=== PATIENT | female | born 1990 ===

== ENCOUNTER 2017-04-15 21:08 | Inpatient (IN) | payer MEDICAID ==
[2017-04-15 21:18] VITALS: O2SAT 96
--- NOTE | 2017-04-15 22:30 | ED PDOC ---
HPI: Psych/Substance Abuse Time Seen by Provider: 04/15/17 21:25 Chief Complaint (Nursing): Psychiatric Evaluation Chief Complaint (Provider): Psychiatric Evaluation History Per: Patient History/Exam Limitations: no limitations Current Symptoms Are (Timing): Still Present Additional Complaint(s): 27 y/o female presents to the emergency department with a complaint of experiencing depression x1 year. Reports making multiple poor decisions in the past in terms of her relationship with men and making healthy decisions. Patient says she is unable to get out of bed, has thoughts of dangerous behaviors with herself, and trying suicidal attempts. States she never needed nor sought medical evaluation for depression. Denies further medical complaints. Past Medical History Reviewed: Historical Data, Nursing Documentation, Vital Signs Vital Signs: Last Vital Signs Temp 98.2 F 04/15/17 21:13 Pulse 80 04/15/17 21:13 Resp 18 04/15/17 21:13 BP 130/82 04/15/17 21:13 Pulse Ox 96 04/15/17 21:13 - Medical History PMH: Depression - Surgical History Surgical History: No Surg Hx - Family History Family History: States: Unknown Family Hx - Social History Current smoker - smoking cessation education provided: No Alcohol: Social Drugs: Cannabis - Home Medications Home Medications: Ambulatory Orders Medication Instructions Recorded No Known Home Med 04/15/17 - Allergies Allergies/Adverse Reactions: Allergies Allergy/AdvReac Type Severity Reaction Status Date / Time No Known Allergies Allergy Verified 04/15/17 21:12 Review of Systems ROS Statement: Except As Marked, All Systems Reviewed And Found Negative Psych: Positive for: Depression, Suicidal ideation Physical Exam - Reviewed Nursing Documentation Reviewed: Yes Vital Signs Reviewed: Yes - Physical Exam Appears: Positive for: Non-toxic, No Acute Distress Head Exam: Positive for: ATRAUMATIC, NORMAL INSPECTION, NORMOCEPHALIC Skin: Positive for: Normal Color, Warm, Dry Eye Exam: Positive for: Normal appearance, EOMI, PERRL ENT: Positive for: Normal ENT Inspection. Negative for: Pharyngeal Erythema Neck: Positive for: Normal, Supple Cardiovascular/Chest: Positive for: Regular Rate, Rhythm. Negative for: Murmur Respiratory: Positive for: Normal Breath Sounds. Negative for: Accessory Muscle Use, Respiratory Distress Gastrointestinal/Abdominal: Positive for: Normal Exam, Soft. Negative for: Tenderness Back: Positive for: Normal Inspection. Negative for: L CVA Tenderness, R CVA Tenderness Extremity: Positive for: Normal ROM. Negative for: Pedal Edema Neurologic/Psych: Positive for: Alert, Oriented - Laboratory Results Result Diagrams: 04/15/17 23:20 04/15/17 23:20 - ECG O2 Sat by Pulse Oximetry: 96 (RA) Pulse Ox Interpretation: Normal Medical Decision Making Medical Decision Making: Time: 21:26 Initial impression: 27 y/o female with suicidal ideation and depression Initial plan: --Alcohol Serum --CMP --Drug Screen, urine --Crisis evaluation as ordered --Urine DIP --Urine Preg --CBC w/ diff --Urinalysis --1:1 Obs for suicide Scribe Attestation: Documented by Robyn Ricardo, acting as a scribe for Gama Gutierrez MD. Provider Scribe Attestation: All medical record entries made by the Scribe were at my direction and personally dictated by me. I have reviewed the chart and agree that the record accurately reflects my personal performance of the history, physical exam, medical decision making, and the department course for this patient. I have also personally directed, reviewed, and agree with the discharge instructions and disposition. ED OBSERVATION Date of observation admission: 04/15/17 Time of observation admission: 21:26 - Observation admission statement Patient is being placed in observation because:: suicidal ideation and depression. - Goals of Observation Goals of observation are:: crisis evaluation, reassessment, and disposition. - Progress Note Progress Note: 04/15/17 23:41 --Patient was evaluated by Crisis. Will be admitted for further medical treatment and stabilization Patient is medically stable for psychiatric admission. 04/16/17 02:22 Disposition - Clinical Impression Clinical Impression: Major depression - Patient ED Disposition Is Patient to be Admitted: Yes Doctor Will See Patient In The: Hospital Counseled Patient/Family Regarding: Diagnosis - Disposition Disposition Time: 22:26 Condition: STABLE
[2017-04-15 23:24] LABS: BASO % 0.4 % (0.0-2.0); EOS # 0.2 K/uL (0.0-0.7); HEMATOCRIT 35.7 % (34.0-47.0); LYMPH # 1.9 K/uL (1.0-4.3); MEAN CORPUSCULAR HEMOGLOBIN 31.2 pg (27.0-31.0); MEAN CORPUSCULAR HGB CONC 33.2 g/dL (33.0-37.0); MEAN PLATELET VOLUME 9.8 fl (7.2-11.7); MONO # 0.9 K/uL (0.0-0.8); MONO % 9.9 % (0.0-10.0); NEUT # 5.9 K/uL (1.8-7.0); NEUT % 66.7 % (50.0-75.0); RED CELL DISTRIBUTION WIDTH 12.6 % (11.5-14.5); WHITE BLOOD COUNT 8.8 K/uL (4.8-10.8)
[2017-04-15 23:29] LABS: RBC URINE 1 /hpf (0-3); URINE BILIRUBIN NEGATIVE (NEGATIVE); URINE BLOOD MODERATE (NEGATIVE); URINE COLOR STRAW (YELLOW); URINE GLUCOSE (UA) NEG (Normal); URINE KETONE NEGATIVE (NEGATIVE); URINE LEUKOCYTE ESTERASE NEG Leu/uL (Negative); URINE PROTEIN NEGATIVE (NEGATIVE); URINE UROBILINOGEN 0.2-1.0 mg/dL (0.2-1.0); WBC URINE < 1 /hpf (0-5)
[2017-04-15 23:35] LABS: ALB/GLOB RATIO 1.3 (1.0-2.1); ALCOHOL SERUM < 10 mg/dl (0-10); ALKALINE PHOSPHATASE 71 U/L (38-126); ALT/SGPT 41 U/L (9-52); AST/SGOT 22 U/L (14-36); BILIRUBIN,TOTAL 0.6 mg/dl (0.2-1.3); BLOOD UREA NITROGEN 8 mg/dl (7-17); CALCIUM 9.3 mg/dL (8.4-10.2); CARBON DIOXIDE 23 mmol/L (22-30); CHLORIDE 105 mmol/L (98-107); GFR AFRICAN-AMERICAN > 60; GLUCOSE,RANDOM 81 mg/dL (65-105); POTASSIUM 3.3 MMOL/L (3.6-5.0); SODIUM 140 mmol/l (132-148); TOTAL PROTEIN 7.8 G/DL (6.3-8.2)
[2017-04-16] MEDS ORDERED: DiphenhydrAMINE 50 mg/ml Inj IM PRN (00:02)
[2017-04-16] MEDS ORDERED: Alum-Mag Hydrox-Simethicone Susp (30 mL) PO PRN (00:02)
[2017-04-16] MEDS ORDERED: Magnesium Hydroxide Susp 30 ml UD PO PRN (00:02)
[2017-04-16 07:22] LABS: T4 8.43 ug/dl (5.5-11.0)
[2017-04-16 07:35] LABS: THYROID STIMULATING HORMONE 1.47 mIU/ML (0.46-4.68)
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
--- NOTE | 2017-04-16 17:08 | CP.PCM.CON ---
History of Present Illness - History of Present Illness History of Present Illness: CC: DEPRESSION HPI 27F no PMH presents to the ER with depression and suicidal ideation. She is admitted voluntarily to psych. No other complaints at this time. HD stable. NAD. ROS: per HPI, 12 systems reviewed and negative PMH: denies PSH: denies FH: mental illness SH: tobacco use, some marijuana Meds: as below Allergies: NKDA Vitals: reviewed and currently stable Temp Pulse Resp BP Pulse Ox 97.0 F L 76 18 126/74 96 04/16/17 09:29 04/16/17 09:29 04/16/17 09:29 04/16/17 09:29 04/16/17 02:23 Exam: GEN: WDWN, alert, cooperative HEENT: NCAT, PERRL, EOMI NECK: supple, no JVD, no lymphadenopathy CARDIAC: +S1S2 RRR LUNG: CTAB No WRR ABD: SOFT NT ND BSX4 NO MASSES NO HSM EXT: +pedal pulses, equal strength NEURO: AAOx3 SKIN warm, dry PSYCH normal mood, normal affect Labs: 04/15/17 23:20 04/15/17 23:20 Assessment and Plan: 27F no PMH presents to the ER with depression and suicidal ideation. She is admitted voluntarily to psych. No other complaints at this time. HD stable. NAD. Depression and SI management per psych Past Patient History - Past Social History Alcohol: Social Drugs: Cannabis - PSYCHIATRIC Hx Depression: Yes - SURGICAL HISTORY Hx Surgeries: No - ANESTHESIA Hx Anesthesia: No Meds Allergies/Adverse Reactions: Allergies Allergy/AdvReac Type Severity Reaction Status Date / Time No Known Allergies Allergy Verified 04/15/17 21:12 - Medications Medications: Current Medications Acetaminophen (Tylenol 325mg Tab) 650 mg PO Q4 PRN PRN Reason: Pain, moderate (4-7) Al Hydrox/Mg Hydrox/Simethicone (Maalox Plus 30 Ml) 30 ml PO Q4 PRN PRN Reason: Dyspepsia Diphenhydramine HCl (Benadryl) 50 mg IM Q6 PRN PRN Reason: Extrapyramidal S/S Unable PO Diphenhydramine HCl (Benadryl) 50 mg PO Q6 PRN PRN Reason: Extrapyramidal Symptoms Diphenhydramine HCl (Benadryl) 50 mg PO HS PRN PRN Reason: Sleep Haloperidol (Haldol) 5 mg PO Q4 PRN PRN Reason: Agitation Haloperidol Lactate (Haldol) 5 mg IM Q4 PRN PRN Reason: Agitation, Unable to Take PO Lorazepam (Ativan) 2 mg IM Q4 PRN PRN Reason: Anxiety/Agitation,Unable PO Lorazepam (Ativan) 2 mg PO Q4 PRN PRN Reason: Anxiety/Agitation Magnesium Hydroxide (Milk Of Magnesia) 30 ml PO HS PRN PRN Reason: Constipation Mirtazapine (Remeron) 15 mg PO HS PRN PRN Reason: Insomnia Results - Vital Signs Recent Vital Signs: Last Vital Signs Temp 97.0 F L 04/16/17 09:29 Pulse 76 04/16/17 09:29 Resp 18 04/16/17 09:29 BP 126/74 04/16/17 09:29 Pulse Ox 96 04/16/17 02:23 - Labs Result Diagrams: 04/15/17 23:20 04/15/17 23:20 Labs: Laboratory Results - last 24 hr 04/15/17 04/15/17 04/15/17 23:20 23:20 23:20 WBC 8.8 RBC 3.80 Hgb 11.9 L Hct 35.7 MCV 94.0 MCH 31.2 H MCHC 33.2 RDW 12.6 Plt Count 268 MPV 9.8 Neut % (Auto) 66.7 Lymph % (Auto) 21.0 Gregory % (Auto) 9.9 Eos % (Auto) 2.0 Baso % (Auto) 0.4 Neut # 5.9 Lymph # 1.9 Gregory # 0.9 H Eos # 0.2 Baso # 0.0 Sodium 140 Potassium 3.3 L Chloride 105 Carbon Dioxide 23 Anion Gap 15 BUN 8 Creatinine 0.7 Est GFR ( Amer) > 60 Est GFR (Non-Af Amer) > 60 Random Glucose 81 Hemoglobin A1c Calcium 9.3 Total Bilirubin 0.6 AST 22 ALT 41 Alkaline Phosphatase 71 Total Protein 7.8 Albumin 4.4 Globulin 3.4 Albumin/Globulin Ratio 1.3 Triglycerides Cholesterol LDL Cholesterol Direct HDL Cholesterol Thyroxine (T4) TSH 3rd Generation Urine Color Urine Clarity Urine pH Ur Specific [place] Urine Protein Urine Glucose (UA) Urine Ketones Urine Blood Urine Nitrate Urine Bilirubin Urine Urobilinogen Ur Leukocyte Esterase Urine RBC (Auto) Urine Microscopic WBC Ur Squamous Epith Cells Urine Opiates Screen Negative Urine Methadone Screen Negative Ur Barbiturates Screen Negative Ur Phencyclidine Scrn Negative Ur Amphetamines Screen Negative U Benzodiazepines Scrn Negative U Oth Cocaine Metabols Negative U Cannabinoids Screen Negative Alcohol, Quantitative < 10 RPR 04/15/17 04/16/17 04/16/17 23:20 06:15 06:15 WBC RBC Hgb Hct MCV MCH MCHC RDW Plt Count MPV Neut % (Auto) Lymph % (Auto) Gregory % (Auto) Eos % (Auto) Baso % (Auto) Neut # Lymph # Gregory # Eos # Baso # Sodium Potassium Chloride Carbon Dioxide Anion Gap BUN Creatinine Est GFR ( Amer) Est GFR (Non-Af Amer) Random Glucose Hemoglobin A1c 5.5 Calcium Total Bilirubin AST ALT Alkaline Phosphatase Total Protein Albumin Globulin Albumin/Globulin Ratio Triglycerides 46 Cholesterol 114 LDL Cholesterol Direct 61 HDL Cholesterol 36 Thyroxine (T4) 8.43 TSH 3rd Generation 1.47 Urine Color Straw Urine Clarity Clear Urine pH 7.0 Ur Specific [place] < 1.005 Urine Protein Negative Urine Glucose (UA) Neg Urine Ketones Negative Urine Blood Moderate Urine Nitrate Negative Urine Bilirubin Negative Urine Urobilinogen 0.2-1.0 Ur Leukocyte Esterase Neg Urine RBC (Auto) 1 Urine Microscopic WBC < 1 Ur Squamous Epith Cells 2 Urine Opiates Screen Urine Methadone Screen Ur Barbiturates Screen Ur Phencyclidine Scrn Ur Amphetamines Screen U Benzodiazepines Scrn U Oth Cocaine Metabols U Cannabinoids Screen Alcohol, Quantitative RPR 04/16/17 06:15 WBC RBC Hgb Hct MCV MCH MCHC RDW Plt Count MPV Neut % (Auto) Lymph % (Auto) Gregory % (Auto) Eos % (Auto) Baso % (Auto) Neut # Lymph # Gregory # Eos # Baso # Sodium Potassium Chloride Carbon Dioxide Anion Gap BUN Creatinine Est GFR ( Amer) Est GFR (Non-Af Amer) Random Glucose Hemoglobin A1c Calcium Total Bilirubin AST ALT Alkaline Phosphatase Total Protein Albumin Globulin Albumin/Globulin Ratio Triglycerides Cholesterol LDL Cholesterol Direct HDL Cholesterol Thyroxine (T4) TSH 3rd Generation Urine Color Urine Clarity Urine pH Ur Specific [place] Urine Protein Urine Glucose (UA) Urine Ketones Urine Blood Urine Nitrate Urine Bilirubin Urine Urobilinogen Ur Leukocyte Esterase Urine RBC (Auto) Urine Microscopic WBC Ur Squamous Epith Cells Urine Opiates Screen Urine Methadone Screen Ur Barbiturates Screen Ur Phencyclidine Scrn Ur Amphetamines Screen U Benzodiazepines Scrn U Oth Cocaine Metabols U Cannabinoids Screen Alcohol, Quantitative RPR Nonreactive
--- NOTE | 2017-04-17 09:59 | PCM.PYCHPN ---
Psychiatric Progress Note - Psychiatric Progress Note Patient seen today, length of contact: discussed with team Patient Chief Complaint: i feel rested Problems Identified/Issues Discussed: pt took remeron last night. states she is feeling "too tired today" she reports she does not want to take any medication for depression until she tries therapy. pt opening up to RN about how her current behaviors are similar to how she perceived her mother was as she was growing up. pt is asking to be discharged soon from the hospital. Medication Change: Yes (lower dose of prn remeron) Medical Record Reviewed: Yes Mental Status Examination - Cognitive Function Orientation: Person, Place, Situation, Time Memory: Intact Attention: WNL Concentration: WNL Association: WNL Fund of Knowledge: [facility] Decription of patient's judgement and insights: fair - Mood Mood: Anxious - Affect Affect: Broad - Speech Speech: Appropriate - Formal Thought Process Formal Thought Process: No Impairment Psychotic Thoughts and Behaviors: no delusions or a/v hallucinations - Suicidal Ideation Suicidal Ideation: No Plan: pt denies any suicidal thoughts - Homicidal Ideation Homicidal Ideation: No Goal/Treatment Plan - Goal/Treatment Plan Need for Continued Stay: Remain at risks for inpatient hospitalization, Discharge may exacerbated symptoms Progress Toward Problem(s) and Goals/Treatment Plan: borderline personality bipolar 2 disorder continue current treatment refer to dbt and outpt services reduce prn dose of remeron for insomnia discharge this week. Estimated Date of D/C: 04/18/17
[2017-04-18 09:16] VITALS: BP 117/67; PULSE 96; RESP 20; TEMP 97.7
--- NOTE | 2017-04-18 09:35 | PCM.PYCHDC ---
Mental Status Examination - Mental Status Examination Orientation: Person, Place, Situation, Time Memory: Intact Mood: Neutral Affect: Broad Speech: Appropriate Attention: WNL Concentration: WNL Association: WNL Fund of Knowledge: WNL Formal Thought Process: No Impairment Description of patient's judgement and insight: fair Psychotic Thoughts and Behaviors: no delusions or a/v hallucinations Suicidal Ideation: No Current Homicidal Ideation?: No Plan: pt denies any suicidal or homicidal thoughts/plans or intent Discharge Summary - Discharge Note Reason for Hospitalization: pt c/o feeling depressed, having self-destructive thoughts Psychiatric History (includes Medical, Family, Personal Hx): no previous history of treatment Consultations:: List each consultation separately and include: 1. Reason for request. 2. Findings. 3. Follow-up Consultations: seen by hospitalist Summary of Hospital Course include:: 1. Description of specific treatment plan utilized for patients during their course of treatmen. 2. Summarize the time- course for resolution of acute symptoms and/or regressed behaviors. 3. Describe issues identified and worked on during hospitalization. 4. Describe medication utilized. 5. Describe medical problems identified and treated. 6. Reassessment of suicide risk Summary of Hospital Course: 27 yo single female living in with her father. she is not currently employed. she has legal problems stemming from her violation of a restraining order. she reports she has been having sleep disturbance, labile mood swings, thoughts of self injury, interpersonal conflicts and out of control behaviors in terms of sex and relationships. she reports she has past history of binge/ purging eating issues. she has poor impulse control when it comes to drinking and forming relationships. she notes that she now has come to a point in her life where she wants to "get my stuff together and function." she describes a sense of not knowing who she is, of having tumultuous interpersonal relationships, and when relationships end, engaging in dramatic behaviors to try and "save" save the relationship. hospital course: [facility] and oriented to the unit. placed on routine safety protocols. pt did not want to take any psychiatric medications- mood stabilizing medication such as lamictal was recommended, but pt wanted to try therapy at this time. she was appropriate in her social interactions on the unit. she was denying any suicidal or homicidal thoughts. she was agreeable to referral to outpt therapy. - Final Diagnosis (DSM 5) Condition upon Discharge: STABLE DSM 5: bipolar 2 borderline personality disorder Disposition: HOME/ ROUTINE Follow-up Treatment Plan: follow up with aftercare as directed take your prn remeron as needed for insomnia do not use alcohol, tobacco or other illicit substances call 911 if any suicidal or homicidal thoughts Prescriptions/Medication Reconciliation: Mirtazapine [Remeron] 7.5 mg PO HS PRN #15 tab PRN Reason: Insomnia - Smoking Cessation Smoking Cessation Medication prescribed: No - Antipsychotic Medications Pt discharged on 2 or more routine antipsychotic medications: No
== END 2017-04-18 14:30 | disposition home or self-care (01) | DRG 430 ==
LOC: H.ER 21:08 → H.ERHOLD 22:26 → H.PSYCH 23:59
PROVIDERS: ADMIT Psychiatry & Neurology Psychiatry; ATTEND Psychiatry & Neurology Psychiatry
DX: F31.81 Bipolar II disorder (principal); F60.3 Borderline personality disorder; F17.200 Nicotine dependence, unspecified, uncomplicated

== ENCOUNTER 2017-06-04 01:17 | Inpatient (IN) | payer MEDICAID ==
[2017-06-04 01:43] VITALS: O2SAT 99
--- NOTE | 2017-06-04 02:07 | ED PDOC ---
HPI: Psych/Substance Abuse Time Seen by Provider: 06/04/17 01:29 Chief Complaint (Nursing): Psychiatric Evaluation Chief Complaint (Provider): Anxiety/Depression/ History Per: Patient, Family (Father) History/Exam Limitations: no limitations Onset/Duration Of Symptoms: Days Current Symptoms Are (Timing): Still Present Ingestion Of Substance: Denies Associated Symptoms: Anxiety, Depression, Paranoia, Suicidal Thoughts Additional Complaint(s): 27 y/o F with PMH including bipolar d/o, brought in by father for psychiatric evaluation. Patient reports increasing anxiety, depression, suicidal ideation over the last 2-3 days. She also reports visual hallucinations of "the devil" and "crosses" in her room but denies any auditory hallucinations. Patient has been pacing back and forth and has been unable to sleep over the last 2 days. Prior to assessment, patient also reports suicidal ideation and tied a belt around her neck. She denies ETOH or illicit drug abuse. Notably, she reports admission to [facility] psychiatric floor approximately 1 month ago but has not regularly followed with a psychiatric provider since discharge. Past Medical History Vital Signs: Last Vital Signs Temp 99.4 F 06/04/17 01:32 Pulse 125 H 06/04/17 01:32 Resp 16 06/04/17 01:32 BP 176/82 H 06/04/17 01:32 Pulse Ox 99 06/04/17 01:32 - Medical History PMH: Anxiety, Bipolar Disorder, Depression - Family History Family History: States: Unknown Family Hx - Social History Current smoker - smoking cessation education provided: No Alcohol: Occasional Drugs: Other (History of recreational cocaine and marijuana use in the past. Patient denies current illicit drug use. ) - Home Medications Home Medications: Ambulatory Orders Medication Instructions Recorded No Known Home Med 06/04/17 - Allergies Allergies/Adverse Reactions: Allergies Allergy/AdvReac Type Severity Reaction Status Date / Time No Known Allergies Allergy Verified 06/04/17 01:32 Review of Systems ROS Statement: Except As Marked, All Systems Reviewed And Found Negative Constitutional: Negative for: Fever, Chills Cardiovascular: Negative for: Chest Pain, Palpitations Respiratory: Negative for: Cough, Shortness of Breath Gastrointestinal: Negative for: Nausea, Vomiting, Abdominal Pain, Diarrhea Psych: Positive for: Anxiety, Depression, Suicidal ideation Physical Exam - Reviewed Vital Signs Reviewed: Yes - Physical Exam Appears: Positive for: No Acute Distress, Uncomfortable Head Exam: Positive for: ATRAUMATIC, NORMAL INSPECTION, NORMOCEPHALIC Skin: Positive for: Warm, Dry Eye Exam: Positive for: Normal appearance, EOMI, PERRL ENT: Positive for: Normal ENT Inspection. Negative for: Pharyngeal Erythema Neck: Positive for: Normal, Painless ROM, Supple Cardiovascular/Chest: Positive for: Tachycardia, Other (Regular rhythm). Negative for: Murmur Respiratory: Positive for: Normal Breath Sounds. Negative for: Accessory Muscle Use, Crackles, Rales, Wheezing, Respiratory Distress Pulses-Radial (L): 2+ Pulses-Radial (R): 2+ Gastrointestinal/Abdominal: Positive for: Normal Exam, Bowel Sounds, Soft. Negative for: Tenderness, Distended, Guarding, Rebound Extremity: Positive for: Capillary Refill (<2s). Negative for: Pedal Edema, Calf Tenderness Neurologic/Psych: Positive for: Alert, Oriented (x3), Mood/Affect (Appears anxious. Suicidial ideation. ) - Laboratory Results Result Diagrams: 06/04/17 03:12 06/04/17 03:12 - ECG O2 Sat by Pulse Oximetry: 99 - Progress ED Course And Treament: Patient had crisis evaluation performed and recommended inpatient psychiatric admission. Patient is agreeable for admission. Disposition - Clinical Impression Clinical Impression: Major depression, Borderline personality disorder - Patient ED Disposition Is Patient to be Admitted: Yes - Disposition Disposition Time: 05:04 Condition: STABLE Forms: [facility] (Congolese) - Pt Status Changed To: Hospital Disposition Of: Inpatient (Admit to psychiatric unit) - Admit Certification Admit to Inpatient:: After my assessment, the patient will require hospitalization for at least two midnights. This is because of the severity of symptoms shown, intensity of services needed, and/or the medical risk in this patient being treated as an outpatient.
[2017-06-04 03:17] LABS: BASO # 0.1 K/uL (0.0-0.2); BASO % 0.5 % (0.0-2.0); EOS # 0.4 K/uL (0.0-0.7); EOS % 2.8 % (0.0-4.0); HEMATOCRIT 39.5 % (34.0-47.0); LYMPH # 1.2 K/uL (1.0-4.3); LYMPH % 9.2 % (20.0-40.0); MEAN CELL VOLUME 93.3 fl (81.0-99.0); MEAN CORPUSCULAR HEMOGLOBIN 30.9 pg (27.0-31.0); MEAN CORPUSCULAR HGB CONC 33.2 g/dL (33.0-37.0); MEAN PLATELET VOLUME 9.8 fl (7.2-11.7); MONO # 1.3 K/uL (0.0-0.8); MONO % 10.3 % (0.0-10.0); NEUT # 9.8 K/uL (1.8-7.0); NEUT % 77.2 % (50.0-75.0); PLATELET COUNT 281 K/uL (130-400); RED CELL DISTRIBUTION WIDTH 12.6 % (11.5-14.5); WHITE BLOOD COUNT 12.8 K/uL (4.8-10.8)
[2017-06-04 03:44] LABS: BLOOD UREA NITROGEN 6 mg/dl (7-17); GFR AFRICAN-AMERICAN > 60; GLUCOSE,RANDOM 103 mg/dL (65-105)
[2017-06-04 03:45] LABS: CALCIUM 9.5 mg/dL (8.4-10.2); CARBON DIOXIDE 22 mmol/L (22-30); CHLORIDE 104 mmol/L (98-107); POTASSIUM 3.6 MMOL/L (3.6-5.0); SODIUM 140 mmol/l (132-148); TOTAL PROTEIN 8.4 G/DL (6.3-8.2)
[2017-06-04 03:46] LABS: ALB/GLOB RATIO 1.2 (1.0-2.1); ALT/SGPT 19 U/L (9-52); AST/SGOT 19 U/L (14-36); BILIRUBIN,TOTAL 0.6 mg/dl (0.2-1.3)
[2017-06-04 03:47] LABS: ALCOHOL SERUM < 10 mg/dl (0-10); ALKALINE PHOSPHATASE 81 U/L (38-126)
[2017-06-04 05:07] LABS: BASOPHIL 1 % (0-2); EOSINOPHIL 7 % (0-7); NEUTROPHIL 69 % (42-75); REACTIVE LYMPHOCYTES 1 % (0-0); TOTAL CELLS COUNTED 100
[2017-06-04 05:08] LABS: LARGE PLATELETS PRESENT
[2017-06-04 05:48] LABS: RBC URINE 4 /hpf (0-3); URINE BACTERIA OCC (<OCC); URINE BILIRUBIN NEGATIVE (NEGATIVE); URINE BLOOD MODERATE (NEGATIVE); URINE COLOR YELLOW (YELLOW); URINE GLUCOSE (UA) NEG (Normal); URINE KETONE 20 mg/dL (NEGATIVE); URINE LEUKOCYTE ESTERASE NEG Leu/uL (Negative); URINE PROTEIN 30 mg/dL (NEGATIVE); URINE UROBILINOGEN 0.2-1.0 mg/dL (0.2-1.0); WBC URINE 2 /hpf (0-5)
[2017-06-04] MEDS ORDERED: Alum-Mag Hydrox-Simethicone Susp (30 mL) PO PRN (06:14)
[2017-06-04] MEDS ORDERED: Magnesium Hydroxide Susp 30 ml UD PO PRN (06:14)
[2017-06-04] MEDS ORDERED: DiphenhydrAMINE 50 mg/ml Inj IM PRN (06:14)
[2017-06-04 07:49] LABS: CHOLESTEROL 99 mg/dL (0-199)
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
--- NOTE | 2017-06-04 14:21 | PCM.BM ---
<Sarah Gambino Jennifer - Last Filed: 06/04/17 14:33> Treatment Plan Problems - Problems identified on initial assessmt Problem 1 Date Initiated: 06/04/17 Time Initiated: 14:22 Assessment reference: NA Status: Active Comment: Medicatin nonadherence Problem 2 Assessment reference: NA altered sleep patterns Assessment reference: NA Status: Active Treatment assets and liabiliti Patient Assests: adapts well, cooperative, resourceful, self-reliant, ADL independent, physically healthy Patient Liabilities: financial problems, poor support system, relationship conflicts - Milieu Protocol Maintain good personal hygiene: daily Encourage regular showers, daily Remind patient to perform daily oral care, other Assist patient to perform ADL's (n/a) Maintain personal safety: every shift Educate patient to report safety concerns to staff, every shift Monitor environment for contraband/sharps Medication safety: Monitor for expected outcome, potential side effects: every shift, Assess barriers to learning: every shift, Assess readiness for medication education: every shift Milieu Narrative: admit to 3np for safety and observation gather collateral information provide supportive therapy adjust medications- start lamictal and remeron. discussed r/b/se with pt who agrees. hospitalist consult disposition planning Discharge/Continuing Care - Treatment Team Participation Patient/Family/SO Statement: admit to 3np for safety and observation gather collateral information provide supportive therapy adjust medications- start lamictal and remeron. discussed r/b/se with pt who agrees. hospitalist consult disposition planning <SbCandy - Last Filed: 06/06/17 10:32> Treatment assets and liabiliti Patient Assests: adapts well, cooperative, resourceful, self-reliant, ADL independent, physically healthy, negotiates basic needs Patient Liabilities: poor support system, relationship conflicts, substance abuse Family Contact Family involvement: Family/SO is involved Family contact: Patient agrees to contact, Family has been contacted by patient Family contact name: Asaf(father)([phone]) Family contacted how many times per week?: 1 - Goals for Treatment Patient goals for treatment: Patient to be encouraged to attend 4-6 groups/ weekly to identify at least 2 contributing factors leading to admission, develop effective/appropriate coping skills, improve insight and promote compliance. Patient to be provided with referral for appropriate level of aftercare to improve functioning/ensure saftey and reduce risk of future hospitalizations. Discharge/Continuing Care - Education Needs Education Needs: Family Medication, Family Diagnosis/Disease Process, Family Coping Skills, Family Community resources, Family Aftercare Safety Plan, Patient Medication, Patient Diagnosis/Disease Process, Patient Coping Skills, Patient Community resources, Patient Aftercare Safety Plan - Discharge Discharge Criteria: Tolerates medication w/o severe side effects, Free of Suicidal thoughts, Free of paranoid thoughts, Normal sleep pattern, Ability to care for self, Reduction of target symptoms Discharge to:: Home, With Family - Treatment Team Participation Patient/Family/SO Statement: 06/06/17 10:21 Patient attended treatment team to discuss progress on 3NP, treatment goals and aftercare. Patient remains tearful and perservating on past behaviors and recent impulsivity. Patient expressed interest in Having Home (residential facility) to "get away" from triggers. Patient provided with information regarding importance of coordinating relocation with recreation officer. [employer]oplesoft Analyst to call facility to obtain further information regarding insurance and admission criteria.
[2017-06-05 06:16] LABS: CHOLESTEROL 97 mg/dL (0-199)
--- NOTE | 2017-06-05 10:04 | PCM.PYCHPN ---
Psychiatric Progress Note - Psychiatric Progress Note Patient seen today, length of contact: discussed with team Patient Chief Complaint: i'm got weak after i left here Problems Identified/Issues Discussed: pt states "i need to do this on my own" and is ambivalent about taking medications. she is expressing some strange beliefs- that she is getting physically weaker after sleeping with a man with whom she is having an affair, she has expressed hearing the devils voice- but states that doesn't happen here. she reports improved sleep with the remeron. no c/o rash or side effects with lamictal. she is refusing to take seroquel to help with her c/o psychotic symptoms. Medication Change: No Medical Record Reviewed: Yes Mental Status Examination - Cognitive Function Orientation: Person, Place, Situation, Time Memory: Intact Attention: WNL Concentration: WNL Association: WNL Fund of Knowledge: [facility] Decription of patient's judgement and insights: fair i/j - Mood Mood: Depressed, Anxious - Affect Affect: Constricted, Depressed - Speech Speech: Appropriate - Formal Thought Process Formal Thought Process: Delusions - Suicidal Ideation Suicidal Ideation: No - Homicidal Ideation Homicidal Ideation: No Goal/Treatment Plan - Goal/Treatment Plan Need for Continued Stay: Remain at risks for inpatient hospitalization, Discharge may exacerbated symptoms Progress Toward Problem(s) and Goals/Treatment Plan: borderline personality disorder bipolar 2 disorder continue lamictal for mood continue remron for mood/sleep encourage participation in treatment t/c low dose seroquel for sleep/psychotic symptoms Estimated Date of D/C: 06/08/17
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
--- NOTE | 2017-06-06 09:29 | PCM.PYCHPN ---
Psychiatric Progress Note - Psychiatric Progress Note Patient seen today, length of contact: discussed with team Patient Chief Complaint: i want to sleep more Problems Identified/Issues Discussed: pt depressed, tearful at time. perseverating on past self-destructive behaviors and expressing guilt. she is still ambivalent about medications, but finds she is sleeping better. she has discussed with nursing she vomits after meals, but this has not been observed. she denies any rash or other side effects with lamictal. Medication Change: No Medical Record Reviewed: Yes Mental Status Examination - Cognitive Function Orientation: Person, Place, Situation, Time Memory: Intact Attention: WNL Concentration: WNL Association: [facility] Fund of Knowledge: [facility] Decription of patient's judgement and insights: fair i/j - Mood Mood: Depressed, Anxious - Affect Affect: Constricted, Depressed - Speech Speech: Appropriate - Formal Thought Process Formal Thought Process: Delusions, Perservation (guilty ruminations) - Suicidal Ideation Suicidal Ideation: No - Homicidal Ideation Homicidal Ideation: No Goal/Treatment Plan - Goal/Treatment Plan Need for Continued Stay: Remain at risks for inpatient hospitalization, Discharge may exacerbated symptoms Progress Toward Problem(s) and Goals/Treatment Plan: borderline personality disorder bipolar 2 disorder continue lamictal for mood- will increase up to 50mg bid prior to discharge if pt allows continue remron for mood/sleep encourage participation in treatment- pt is attending groups t/c low dose seroquel for sleep/psychotic symptoms- pt is refusing this option and symptoms seem transient Estimated Date of D/C: 06/08/17
--- NOTE | 2017-06-07 09:38 | PCM.PYCHPN ---
Psychiatric Progress Note - Psychiatric Progress Note Patient seen today, length of contact: discussed with team Patient Chief Complaint: i feel better than the first day Problems Identified/Issues Discussed: pt is now agreeing to take seroquel. pt's sister apprently took or is taking this medication. pt is still depressed, perseverating about past behaviors. she is attending groups. pt reports sleep is improved. Medication Change: Yes (dc remeron, start seroquel) Medical Record Reviewed: Yes Mental Status Examination - Cognitive Function Orientation: Person, Place, Situation, Time Memory: Intact Attention: WNL Concentration: WNL Association: WNL Fund of Knowledge: [facility] Decription of patient's judgement and insights: fair i/j - Mood Mood: Depressed, Anxious - Affect Affect: Constricted, Depressed - Speech Speech: Appropriate - Formal Thought Process Formal Thought Process: Delusions, Perservation (guilty ruminations persist, internally preoccupied at times) - Suicidal Ideation Suicidal Ideation: No - Homicidal Ideation Homicidal Ideation: No Goal/Treatment Plan - Goal/Treatment Plan Need for Continued Stay: Remain at risks for inpatient hospitalization, Discharge may exacerbated symptoms Progress Toward Problem(s) and Goals/Treatment Plan: borderline personality disorder bipolar 2 disorder continue lamictal for mood- will increase up to 50mg bid prior to discharge if pt allows continue remron for mood/sleep, but as a prn discussed r/b/se of seroquel with pt who agrees to start low dose to address mood/thought symptoms. encourage participation in treatment- pt is attending groups Estimated Date of D/C: 06/12/17
--- NOTE | 2017-06-08 13:14 | PCM.PYCHPN ---
Psychiatric Progress Note - Psychiatric Progress Note Patient seen today, length of contact: discussed with team Patient Chief Complaint: i feel good Problems Identified/Issues Discussed: pt denies side effects with seroquel. she reports she is feeling a little less depressed. she isolates in room. remains depressed. no side effects with lamictal. Medication Change: No ( ) Medical Record Reviewed: Yes Mental Status Examination - Cognitive Function Orientation: Person, Place, Situation, Time Memory: Intact Attention: WNL Concentration: WNL Association: WNL Fund of Knowledge: [facility] Decription of patient's judgement and insights: fair i/j - Mood Mood: Depressed - Affect Affect: Constricted, Depressed - Speech Speech: Appropriate - Formal Thought Process Formal Thought Process: Delusions, Perservation (guilty ruminations persist, internally preoccupied at times) - Suicidal Ideation Suicidal Ideation: No - Homicidal Ideation Homicidal Ideation: No Goal/Treatment Plan - Goal/Treatment Plan Need for Continued Stay: Remain at risks for inpatient hospitalization, Discharge may exacerbated symptoms Progress Toward Problem(s) and Goals/Treatment Plan: borderline personality disorder bipolar 2 disorder continue lamictal for mood- will increase up to 50mg bid prior to discharge if pt allows continue remron for mood/sleep, as a prn continue seroquel 25mg hs, may increase later this weekend encourage participation in treatment- pt is attending groups Estimated Date of D/C: 06/12/17
--- NOTE | 2017-06-08 18:43 | CARD ---
APPROVED REPORT EKG Measurement Heart [id number] <Conclusion> Normal sinus rhythm Normal ECG
--- NOTE | 2017-06-09 11:16 | PCM.PYCHPN ---
Psychiatric Progress Note - Psychiatric Progress Note Patient seen today, length of contact: Patient evaluated, chart reviewed Patient Chief Complaint: "I'm feeling a little better, I think." Problems Identified/Issues Discussed: Patient reports that she believes her mood is fluctuating. She discussed how she made several bad decisions in the past, including partying too much and sleeping with an ex. She states that her depression is improving. We discussed continued titration of Seroquel and Lamictal, but she did not want to make any medication modifications today. She stated that she would be agreeable to increasing the Lamictal tomorrow. No AH/VH/SI/HI/paranoia. No current adverse effects to medications reported. Medication Change: No Medical Record Reviewed: Yes Mental Status Examination - Cognitive Function Orientation: Person, Place, Situation, Time Memory: Intact Attention: WNL Concentration: WNL Association: WNL Fund of Knowledge: [facility] Decription of patient's judgement and insights: Fair I/J - Mood Mood: Depressed - Affect Affect: Constricted, Depressed - Speech Speech: Appropriate - Formal Thought Process Formal Thought Process: Perservation (guilty ruminations persist, internally preoccupied at times) Psychotic Thoughts and Behaviors: Denies AH/VH/paranoia - Suicidal Ideation Suicidal Ideation: No - Homicidal Ideation Homicidal Ideation: No Goal/Treatment Plan - Goal/Treatment Plan Need for Continued Stay: Remain at risks for inpatient hospitalization, Discharge may exacerbated symptoms Progress Toward Problem(s) and Goals/Treatment Plan: Borderline Personality Disorder; Bipolar 2 disorder -Individual and group therapy -Continue Lamictal 25 mg PO BID, will attempt to increase tomorrow -Continue Remeron 15 mg PO HS PRN insomnia -Continue Seroquel 25 mg PO HS, patient not agreeable to increasing this medication at this time. Estimated Date of D/C: 06/12/17
--- NOTE | 2017-06-10 10:12 | PCM.PYCHPN ---
Psychiatric Progress Note - Psychiatric Progress Note Patient seen today, length of contact: Patient evaluated, chart reviewed Patient Chief Complaint: "I'm okay" Problems Identified/Issues Discussed: Patient reports that her mood is improving and is goal oriented towards discharge. We discussed continued titration of Lamictal and she was agreeable. She does not want to increase Seroquel at this time. No AH/VH/SI/HI/ paranoia. No current adverse effects to medications reported. Medication Change: Yes (Increase Lamictal to 50 mg PO BID) Medical Record Reviewed: Yes Mental Status Examination - Cognitive Function Orientation: Person, Place, Situation, Time Memory: Intact Attention: WNL Concentration: WNL Association: WNL Fund of Knowledge: [facility] Decription of patient's judgement and insights: Fair I/J - Mood Mood: Depressed - Affect Affect: Broad - Speech Speech: Appropriate - Formal Thought Process Formal Thought Process: No Impairment Psychotic Thoughts and Behaviors: Denies AH/VH/paranoia - Suicidal Ideation Suicidal Ideation: No - Homicidal Ideation Homicidal Ideation: No Goal/Treatment Plan - Goal/Treatment Plan Need for Continued Stay: Remain at risks for inpatient hospitalization, Discharge may exacerbated symptoms Progress Toward Problem(s) and Goals/Treatment Plan: Borderline Personality Disorder; Bipolar 2 disorder -Individual and group therapy -Increase Lamictal to 50 mg PO BID -Continue Remeron 15 mg PO HS PRN insomnia -Continue Seroquel 25 mg PO HS, patient not agreeable to increasing this medication at this time. Estimated Date of D/C: 06/11/17
[2017-06-11 09:05] VITALS: BP 123/74; PULSE 96; RESP 20; TEMP 96.5
--- NOTE | 2017-06-11 12:23 | PCM.PYCHDC ---
Mental Status Examination - Mental Status Examination Orientation: Person, Place, Situation, Time Memory: Intact Mood: Neutral Affect: Broad Speech: Appropriate Attention: WNL Concentration: WNL Association: WNL Fund of Knowledge: WNL Formal Thought Process: No Impairment Description of patient's judgement and insight: fair i/j Psychotic Thoughts and Behaviors: denies any a/v hallucinations Suicidal Ideation: No Current Homicidal Ideation?: No Plan: pt denies any suicidal or homicidal thoughts/plans or intent Discharge Summary - Discharge Note Reason for Hospitalization: pt expressing suicidal thoughts, depression, irritable mood Psychiatric History (includes Medical, Family, Personal Hx): history of previous hospitalizations, did not f/u with after care Consultations:: List each consultation separately and include: 1. Reason for request. 2. Findings. 3. Follow-up Consultations: seen by hospitalist Summary of Hospital Course include:: 1. Description of specific treatment plan utilized for patients during their course of treatmen. 2. Summarize the time- course for resolution of acute symptoms and/or regressed behaviors. 3. Describe issues identified and worked on during hospitalization. 4. Describe medication utilized. 5. Describe medical problems identified and treated. 6. Reassessment of suicide risk Summary of Hospital Course: pt brought to er by father. she was here on the unit earlier in the summer and referred to dbt at [facility]. she indicates she did not go to her appointment. she indicates her mood is dysphoric- anxious/depressed/irritable/uncomfortable. states she is not sleeping for days. reports she is engaging in self destructive behaviors- binge drinking and eating, restarting sexual relationship with a person "i am cheating with" she denies any pi or a/v hallucinations. she reports suicidal thoughts, but no plan or intent. denies any bizarre thoughts/behaviors. hospital course pt was admitted to [facility] and oriented to the unit. pt was placed on routine safety protocols. pt was started on lamictal for mood and was started on seroquel to help with mood and sleep. she was initially isolating in her room and c/o feeling depressed, hopeless. she did not have any c/o side effects or any rash with the medications. her mood was improved on the day of discharge. she was denying any suicidal or homicidal thoughts at the time discharge. she was participating in groups and was agreeing to attend aftercare at the time of her discharge. - Final Diagnosis (DSM 5) Condition upon Discharge: STABLE DSM 5: borderline personality disorder bipolar 2 disorder Disposition: HOME/ ROUTINE Follow-up Treatment Plan: follow up with aftercare as directed take medications as prescribed do not use alcohol tobacco or other illicit substances call 911 if any suicidal or homicidal thoughts Prescriptions/Medication Reconciliation: lamoTRIgine [LaMICtal] 50 mg PO BID #15 tab Mirtazapine [Remeron] 15 mg PO HS PRN #15 tab PRN Reason: Insomnia QUEtiapine [Seroquel] 25 mg PO HS #15 tab - Smoking Cessation Smoking Cessation Medication prescribed: No - Antipsychotic Medications Pt discharged on 2 or more routine antipsychotic medications: No
== END 2017-06-11 12:15 | disposition home or self-care (01) | DRG 430 ==
LOC: H.ER 01:17 → H.ERHOLD 04:54 → H.PSYCH 06:22
PROVIDERS: ADMIT Psychiatry & Neurology Psychiatry; ATTEND Psychiatry & Neurology Psychiatry
PROC: GZ3ZZZZ Medication Management (ICD-10-PCS; principal; 2017-06-04)
DX: F31.81 Bipolar II disorder (principal); R45.851 Suicidal ideations; F60.3 Borderline personality disorder; F41.9 Anxiety disorder, unspecified; F12.90 Cannabis use, unspecified, uncomplicated; Z83.0 Family history of human immunodeficiency virus [HIV] disease